=== PATIENT | female | born 1940 | race Caucasian/White ===

== ENCOUNTER → 2017-08-21 | Outpatient (CLI) | payer OTHER ==
[~2017-08-21] VITALS: Ht 160 cm; Wt 60.3 kg
[~2017-08-21] MED LIST: ANASTROZOLE1 MG; B1; B6; CALCIUM 600 +1 EAC1 PO; FISH OIL 1,001000 M2 PO; FOSAMAX 70 MG T70 M1; IRON325 PO; LISINOPRIL-HCT1 EACH PO; NETTLE LEAF10000 GM PO; SIMVASTATIN20 MG; TART CHERRY CA1 EACH PO; TIMOLOL MA0.5 %/5 M2; VITAMIN B-12500 MCG PO; VITAMIN D2000 UNIT PO; VITAMINC500 PO; ZOCOR20 MG PO
[2017-08-21 09:43] VITALS: BP 137/51
== END ==
LOC: M.INT 09:22
DX: I73.9 Peripheral vascular disease, unspecified (principal); I10 Essential (primary) hypertension; M81.0 Age-related osteoporosis without current pathological fracture; E78.2 Mixed hyperlipidemia; D64.9 Anemia, unspecified; C50.411 Malignant neoplasm of upper-outer quadrant of right female breast

== ENCOUNTER → 2019-05-09 | Outpatient (CLI) | payer MEDICARE | LOC: M.RAD 10:26 | DX: M19.011 Primary osteoarthritis, right shoulder (principal); M16.11 Unilateral primary osteoarthritis, right hip ==